=== PATIENT | male | born 1960 | race Caucasian/White ===

== ENCOUNTER 2019-03-12 08:36 | Outpatient (REF) | payer MEDICARE, SELFPAY ==
[2019-03-12 19:14] LABS: HCT 44.3 % (40.0-50.0); HGB 14.4 g/dL (13.5-17.5); Mean Corp. HGB Concentration 32.5 g/dL (32.0-36.0); Mean Corpuscular Hemoglobin 28.9 pg (27.0-33.0); Mean Corpuscular Volume 88.8 fL (80-95); Mean Platelet Volume 11.3 fL (8.0-11.0); Platelet Count 195 x1000/uL (130-400); RBC 4.99 m/cumm (4.50-6.00); RBC Distribution Width 14.9 % (11.8-14.1); White Blood Cell Count 6.43 k/cumm (4.4-10.8)
[2019-03-12 19:27] LABS: Calculated LDL 102 mg/dL; Cholesterol 169 mg/dL (50-200); Glucose 96 mg/dL (70-100); HDL Cholesterol 47 mg/dL (40-60); Triglyceride 102 mg/dL (30-150)
== END 2019-03-12 08:56 ==
LOC: NCHCO 08:36
PROVIDERS: PCP Internal Medicine; Visit Provider Internal Medicine
DX: I83.812 Varicose veins of left lower extremity with pain (principal); Z13.1 Encounter for screening for diabetes mellitus; Z13.6 Encounter for screening for cardiovascular disorders
CPT/HCPCS: 80061; 82947; 85027

== ENCOUNTER 2021-03-03 21:01 | Outpatient (REF) | payer MEDICARE, SELFPAY ==
[2021-03-03 21:41] LABS: HCT 47.4 % (40.0-50.0); HGB 14.7 g/dL (13.5-17.5); MCH 27.8 pg (27.0-33.0); MCV 89.8 fL (80-95); MPV 11.7 fL (8.0-11.0); Platelet Count 195 10^3/uL (130-400); RBC 5.28 10^6/uL (4.36-5.78); RDW 14.4 % (11.8-14.1); RDW-SD 47.3 fL; WBC 7.06 10^3/uL (4.4-10.8)
[2021-03-03 21:49] LABS: ALT 39 U/L (16-63); AST 25 U/L (15-37); Albumin 3.7 g/dL (3.4-5.0); Alkaline Phosphatase 121 U/L (46-116); Anion Gap 4.4 mmol/L (3-11); BUN 18 mg/dL (7-18); Bilirubin, Total 0.3 mg/dL (0.2-1.0); CO2 32.6 mmol/L (21.0-32.0); CREATININE 0.9 mg/dL (0.70-1.30); Calcium 8.7 mg/dL (8.5-10.1); Chloride 106 mmol/L (98-107); Glucose 61 mg/dL (74-106); Potassium 4.1 mmol/L (3.5-5.1); Sodium 143 mmol/L (136-145); Total Protein 7.4 g/dL (6.4-8.2)
== END 2021-03-03 21:02 | disposition home or self-care (01) ==
LOC: NCHCN 21:01
PROVIDERS: PCP Internal Medicine; Visit Provider Internal Medicine
DX: G40.209 Localization-related (focal) (partial) symptomatic epilepsy and epileptic syndromes with complex partial seizures, not intractable, without status epilepticus (principal); Z51.81 Encounter for therapeutic drug level monitoring
CPT/HCPCS: 80053; 85027

== ENCOUNTER 2022-03-10 20:23 | Outpatient (REF) | payer MEDICARE, SELFPAY ==
[2022-03-10 19:30] LABS: ALT 38 U/L (16-63); AST 26 U/L (15-37); Albumin 3.8 g/dL (3.4-5.0); Alkaline Phosphatase 112 U/L (46-116); Anion Gap 7.8 mmol/L (3-11); BUN 22 mg/dL (7-18); Bilirubin, Total 0.3 mg/dL (0.2-1.0); CO2 27.2 mmol/L (21.0-32.0); CREATININE 0.9 mg/dL (0.70-1.30); Calcium 8.8 mg/dL (8.5-10.1); Chloride 106 mmol/L (98-107); Estimated GFR 97.78 (mL/min/1.73m2); Glucose 102 mg/dL (74-106); Potassium 4.3 mmol/L (3.5-5.1); Sodium 141 mmol/L (136-145); Total Protein 7.2 g/dL (6.4-8.2)
[2022-03-10 19:44] LABS: Abs Immature Grans 0.02 10^3/uL (0.0-0.06); Absolute Basophil Count 0.03 10^3/uL (0.0-0.2); Absolute Lymphocyte Count 2.27 10^3/uL (1.2-3.4); Absolute Monocyte Count 0.54 10^3/uL (0.1-0.8); Absolute Neutrophil Count 4.15 10^3/uL (1.2-6.7); Basophils % 0.4; Eosinophils % 5.4; HCT 45.4 % (40.0-50.0); HGB 14.5 g/dL (13.5-17.5); Immature Grans % 0.3; Lymphocytes % 30.6; MCH 28.5 pg (27.0-33.0); MCHC 31.9 % (32.0-36.0); MCV 89 fL (80-95); MPV 12.3 fL (8.0-11.0); Monocytes % 7.3; Platelet Count 170 10^3/uL (130-400); RBC 5.09 10^6/uL (4.36-5.78); RDW-SD 45.9 fL; WBC 7.41 10^3/uL (4.4-10.8)
== END 2022-03-10 20:24 | disposition home or self-care (01) ==
LOC: NCHCN 20:23
PROVIDERS: PCP Internal Medicine; Visit Provider Internal Medicine
DX: Z00.00 Encounter for general adult medical examination without abnormal findings (principal); Z12.5 Encounter for screening for malignant neoplasm of prostate
CPT/HCPCS: 80053; 84153; 85025

== ENCOUNTER 2023-06-28 15:06 | Outpatient (REF) | payer MEDICARE, SELFPAY ==
[2023-06-28 20:28] LABS: Abs Immature Grans 0.02 10^3/uL (0.0-0.06); Absolute Basophil Count 0.03 10^3/uL (0.0-0.2); Absolute Lymphocyte Count 1.91 10^3/uL (1.2-3.4); Absolute Monocyte Count 0.54 10^3/uL (0.1-0.8); Absolute Neutrophil Count 3.36 10^3/uL (1.2-6.7); Basophils % 0.5; Eosinophils % 3.3; HCT 47.8 % (40.0-50.0); HGB 15.4 g/dL (13.5-17.5); Immature Grans % 0.3; Lymphocytes % 31.5; MCH 28.5 pg (27.0-33.0); MCHC 32.2 % (32.0-36.0); MCV 89 fL (80-95); MPV 11.3 fL (8.0-11.0); Monocytes % 8.9; Neutrophils % 55.5; Platelet Count 172 10^3/uL (130-400); RDW-SD 45.3 fL; WBC 6.06 10^3/uL (4.4-10.8)
[2023-06-28 20:49] LABS: ALT 53 U/L (16-63); AST 32 U/L (15-37); Albumin 3.7 g/dL (3.4-5.0); Alkaline Phosphatase 101 U/L (46-116); Anion Gap 4.1 mmol/L (3-11); BUN 20 mg/dL (7-18); Bilirubin, Total 0.4 mg/dL (0.2-1.0); CO2 31.9 mmol/L (21.0-32.0); CREATININE 0.9 mg/dL (0.70-1.30); Calcium 9.1 mg/dL (8.5-10.1); Chloride 104 mmol/L (98-107); Estimated GFR 96.57 (mL/min/1.73m2); Glucose 88 mg/dL (74-106); Sodium 140 mmol/L (136-145); Total Protein 7.7 g/dL (6.4-8.2)
[2023-06-29 18:25] LABS: PSA, Screening 0.7 ng/mL (<=4.5)
== END 2023-06-28 15:07 | disposition home or self-care (01) ==
LOC: NCHCN 15:06
PROVIDERS: PCP Internal Medicine; Visit Provider Internal Medicine
DX: Z51.81 Encounter for therapeutic drug level monitoring (principal); Z12.5 Encounter for screening for malignant neoplasm of prostate
CPT/HCPCS: 80053; 84153; 85025

== ENCOUNTER 2024-07-03 12:41 | Outpatient (REF) | payer MEDICARE, SELFPAY ==
[2024-07-03 20:49] LABS: ALT 40 U/L (16-63); AST 29 U/L (15-37); Albumin 4.1 g/dL (3.4-5.0); Alkaline Phosphatase 124 U/L (46-116); Anion Gap 6.1 mmol/L (3-11); BUN 24 mg/dL (7-18); Bilirubin, Total 0.28 mg/dL (0.2-1.0); CO2 28.9 mmol/L (21.0-32.0); CREATININE 1.1 mg/dL (0.70-1.30); Calcium 9.2 mg/dL (8.5-10.1); Calculated LDL 98 mg/dL (<100); Chloride 106 mmol/L (98-107); Cholesterol 179 mg/dL (<200); Estimated GFR 75.43 (mL/min/1.73m2); Glucose 77 mg/dL (74-106); HDL Cholesterol 53 mg/dL (40-60); Potassium 4.4 mmol/L (3.5-5.1); Sodium 141 mmol/L (136-145); TSH 1.64 uIU/mL (0.36-3.74); Total Protein 8.1 g/dL (6.4-8.2); Triglyceride 144 mg/dL (<150)
[2024-07-04 22:15] LABS: HIV-1/2 Ag & Ab Screen Negative (Negative)
[2024-07-04 22:17] LABS: Hepatitis C Ab w Rflx HCV PCR Negative (Negative)
== END 2024-07-03 12:42 | disposition home or self-care (01) ==
LOC: NCHCN 12:41
PROVIDERS: PCP Internal Medicine; Visit Provider Internal Medicine
DX: Z00.00 Encounter for general adult medical examination without abnormal findings (principal); Z13.220 Encounter for screening for lipoid disorders; R25.1 Tremor, unspecified; G40.209 Localization-related (focal) (partial) symptomatic epilepsy and epileptic syndromes with complex partial seizures, not intractable, without status epilepticus
CPT/HCPCS: 80053; 80061; 86803; 87389; 84443